=== PATIENT | male | born 1970 | race Caucasian/White ===

== ENCOUNTER → 2025-07-02 03:16 | Outpatient (BNV) | payer OTHER, SELFPAY | PROVIDERS: Visit Provider Radiology Diagnostic Radiology | DX: R07.9 Chest pain, unspecified (principal) | CPT/HCPCS: 71045 ==

== ENCOUNTER 2025-07-02 03:52 | Emergency (ER) | payer OTHER, SELFPAY ==
--- NOTE | 2025-07-02 | ECG_ITS ---
Test Reason : CHEST PAIN Blood Pressure : */* mmHG Vent. Rate : 59 BPM Atrial Rate : 59 BPM P-R Int : 156 ms QRS Dur : 72 ms QT Int : 402 ms P-R-T Axes : 33 -4 44 degrees QTcB Int : 397 ms Sinus bradycardia Otherwise normal ECG No previous ECGs available Referred By: Generic ED Physician Electronically Signed By: FLORENCIO ALVES
--- NOTE | ~2025-07-02 | XR_ITS ---
CLINICAL HISTORY: cp 1 view chest x-ray. Comparison: None provided Findings: The lungs appear clear. There is no consolidation, effusion, or pneumothorax. Cardiomediastinal silhouette is within normal limits. IMPRESSION: No acute cardiopulmonary abnormality. This document has been electronically signed by: Milton Cuellar MD on 07/02/2025 04:37:02
[2025-07-02 04:06] VITALS: BP 164/87; PULSE 66; RESP 18; TEMP 36.8; O2SAT 99; BMI 33.2
[2025-07-02 04:08] LABS: Hematocrit 43.4 % (42.0-52.0); Hemoglobin 15.5 g/dl (14.0-18.0); Imm Gran Abs Auto 0.03 X10*3/uL (0.00-0.03); Imm Gran Pct Auto 0.5 % (0.0-0.4); Lymphocytes Absolute Auto 1.2 X10*3/uL (1.2-4.9); MANUAL DIFF FLAG NO; Mean Corpuscular HGB Conc 35.7 g/dl (31.0-36.0); Mean Corpuscular Hemoglobin 28.9 pg (27.0-33.0); Mean Corpuscular Volume 81.0 fL (80.0-98.0); NRBC Abs Auto 0.000 X10*3/uL (0.0-0.012); NRBC Pct Auto 0.0 /100WBC (0.0-0.2); Platelet Count 252 X10*3/uL (160-400); Red Blood Count 5.36 X10*6/uL (4.60-5.80); White Blood Count 6.4 X10*3/uL (4.8-10.8)
[2025-07-02 04:26] LABS: Alanine Aminotransferase 27 U/L (0-40); Albumin Level 4.4 g/dL (3.5-5.0); Alkaline Phosphatase 67 U/L (39-117); Anion Gap 12 (12-20); Aspartate Amino Transferase 30 U/L (5-37); Blood Urea Nitrogen 20 mg/dL (9-16); Calcium 9.4 mg/dL (8.4-10.2); Carbon Dioxide 25 mmol/L (22-29); Chloride 108 mmol/L (96-108); Creatinine Clr Calc Pharmacy 90.3; Estimated Glomerular Filt Rate > 60; Potassium 4.0 mmol/L (3.3-5.1); Sodium 141 mmol/L (135-145); Total Protein 7.1 g/dL (6.5-8.0)
[2025-07-02 04:30] LABS: Troponin-I High Sensitivity 3.4 ng/L (<3.5-35.0)
[2025-07-02 04:32] VITALS: BP 152/87; PULSE 58; RESP 16; TEMP 37; O2SAT 99
--- OUTSIDE RECORDS SUMMARY | 2025-07-02 05:27 | XMS_ITS | Clinical Summary ---
Author Organization [facility] Address [address] [place] [id number] Phone Care Team Providers Care Page Makeup System Operator Name Role Phone Sachin Santos Primary Care Provider [phone] Allergies No known active allergies Medications fluticasone propionate (FLONASE) 50 mcg/actuation nasal spray 1 spray 2 (two) times a day. 08/20/2023 Active cetirizine (ZYRTEC) 10 MG tablet Take 1 tablet by mouth every morning. 08/20/2023 Active Social History Tobacco Use Types Packs/Day Years Used Date Smoking Tobacco: Never Assessed Education Answer Date Recorded Are you interested in more education? Not on froilan e 08/29/2023 Are you concerned about learning? Not on file 08/29/2023 No 08/29/2023 No 08/29/2023 Digital Access Answer Date Recorded No 08/29/2023 No 08/29/2023 Reliable internet access at home? Not on file 08/29/2023 Device with a working camera? Not on file Sex and Gender Information Value Date Recorded Sex Assigned at Not on file Legal Sex Male 7:15 PM EST Gender Identity Not on file Sexual Orientation Not on file Plan of Treatment Health Maintenance Due Date Last Done Comments Adult Td,Tdap Booster 1970 LIPID PANEL 1970 DEPRESSION SCREENING 1982 SMOKING Hx and SMOKELESS TOB ACCO SCREENING 1983 HEPATITIS C SCREENING 1988 HIV ONE-TIME SCREENING (18-6 5 YEARS) 1988 COLOGUARD 2015 COLONOSCOPY 2015 COLORECTAL CANCER SCREENING 2015 FIT TEST 2015 FOBT 2015 SIGMOIDOSCOPY 2015 VIRTUAL COLONOSCOPY 2015 PNEUMOCOCCAL VACCINES (50+ y ears) (1 of 1 - PCV) 2020 ZOSTER VACCINES (1 of 2) 2020 COVID-19 VACCINE (1 - 2023-2 5 season) 2024 INFLUENZA VACCINE (#1) 2025 HEPATITIS A VACCINES Aged Out No long er eligible based on patient's age to complete this topic HIB VACCINES Aged Out No longer eligi ble based on patient's age to complete this topic MENINGOCOCCAL VACCINES (ACWY) Aged Out No longer eligible based on patient's age to complete this topic MENINGOCOCCAL VACCINES (B) Aged Out N o longer eligible based on patient's age to complete this topic Medical Devices Not on file Insurance PPO PPO PPO PPO PPO PPO Care Teams Page Makeup System Operator Relationship Specialty Start Date End Date Sachin Santos PA [address] [place] [id number] [email or web address] PCP - General Physician Wiping Rag Washer 08/12/23 Additional Source Comments The information contained in this document represents components of the legal health record. It is not the complete legal health record.[facility]
--- OUTSIDE RECORDS SUMMARY | 2025-07-02 05:27 | XMS_ITS | Patient Health Record ---
Author Organization [facility] Address [address] [place] [address] Care Team Providers Care Cpr Instructor Name Role Phone Allan Manzanares Primary Care Provider BroJOSE RAUL Paula [phone] Medications Medication SIG (Take, Route, Fr equency, Duration) Notes Start Date End Date Status Ibuprofen 800 MG 1 tablet Orally Thre e times a day; Duration: 5 day(s) 07/15/2012 Active Problems Problem Type SNOMED Code ICD Code Onset Dates Problem Status W/U Status Risk Notes Problem Contraception care education (392063839) Other general counseling and advice for contraceptive management (V25.09) Active confirmed Plan Of Treatment No Information Insurance Providers Payer Name Payer Address Payer Phone Subscriber Number Group Number Insured Name Patient Relationship to Insured Coverage Start Date Coverage End Date BLUE [facility] [address] [place] [address] [phone] [id number] Juice Grey Self - patient is the insured Medical (General) History Medical History History ICD Code Inguinal hernia at age 10 Surgical History Surgery Date(Month/Year) Inguinal hernia repair 1979
--- OUTSIDE RECORDS SUMMARY | 2025-07-02 05:28 | XMS_ITS | Patient Health Record ---
Author Organization [facility] Address [address] [place] [address] Care Team Providers Care Cafeteria Manager Name Role Phone Allan Manzanares Iii, MD Primary Care Provider Melissajonh Tinsley, Sachin Unavailable [phone] Reason For Referral No Information Medications Medication SIG (Take, Route, Fr equency, Duration) Notes Start Date End Date Status Ibuprofen 800 MG Tablet 1 tablet Orally Three times a day; Duration: 5 day(s) 07/15/2012 Active Social History Social History Additional Details Category Social Info Options Details Migrated Social History Drugs/Alcohol: (Alcohol Screen): Points: 3, Interpretation: Negative Tobacco Use: (Tobacco Use/Smoking): Are you a:: former smoker , How long has it been since you last smoked?: >10 years Problems Problem Type SNOMED Code ICD Code Onset Dates Problem Status W/U Status Risk Notes Problem Other general counseling and advice for contraceptive management (Z30.09) Active confirmed Plan Of Treatment No Information Insurance Providers Payer Name Payer Address Payer Phone Subscriber Number Group Number Insured Name Patient Relationship to Insured Coverage Start Date Coverage End Date Blue [facility] [address] [id number] Juice Grey Self - patient is the insured Medical (General) History Medical History History ICD Code Inguinal hernia at age 10 Surgical History Surgery Date(Month/Year) Inguinal hernia repair 1979
--- NOTE | 2025-07-02 06:12 | ED.CHESTPAIN ---
HPI - Chest Pain General Chief Complaint: Chest Pain Stated Complaint: CP Time Seen by Provider: 07/02/25 06:12 History of Present Illness ED Provider: Razia SANFORD narrative: The patient is a 55-year-old male who comes to the emergency room for evaluation of symptoms of chest pressure that has been bothering him for about 3 or 4 days fairly continuously. He has also noticed that his blood pressures has been running higher this week. Tonight his blood pressure seemed to be even higher than they has been and he decided to come to the emergency room for evaluation. There has been a question as to whether the patient has hypertension requiring treatment. He has not yet been on any treatment.. He does triathlons. He says that his father has a history of coronary stents. He thinks that his father 1st started having heart troubles at around the age of 70. The patient has never been a smoker. Related Data Allergies Allergy/AdvReac Type Severity Reaction Status Date / Time No Known Allergies Allergy Verified 07/02/25 04:10 Review of Systems Review of Systems: Yes all other systems are reviewed and are negative [facility] Social History Social History Smoked in Last 30 Days: No Use of substances other than those prescribed or required for medical reasons: No Advance Directives: No Advance Directives Information Provided: Yes Physical Exam Vital Signs: Vital Signs: Last Vital Signs Temp 97.9 F 07/02/25 06:31 Pulse 64 07/02/25 06:31 Resp 12 07/02/25 06:31 BP 151/99 H 07/02/25 06:31 Pulse Ox 99 07/02/25 06:31 O2 Del Method Room Air 07/02/25 06:31 BMI result Body Mass Index 33.2 Const: Other: The patient is awake, alert, pleasant, cooperative. He does not appear in any distress. Orientation/consciousness: patient oriented x3 HEENT: Other: The face is symmetrical. ?Mucous membranes moist. Eyes: Other: Pupils are round equal, conjunctivae are clear, extraocular movements intact Neck: Neck: Yes normal visual inspection, Yes full ROM and Yes no JVD Resp: Effort & Inspection: normal respiratory effort Auscultation: clear to auscultation bilaterally Cardio: Rate: regular rate Rhythm: regular rhythm Heart sounds: S1 normal heart sound present and S2 normal heart sound present GI: Other: Abdomen is soft and nontender Skin: Other: The skin is dry and unremarkable General skin exam: no rashes or lesions noted Neuro: General: patient oriented x3, gait normal, tone normal, moves all extremities, no focal motor deficits and CN's II-XI intact bilaterally Extrem: Other: There is no calf swelling or tenderness. No asymmetry. No peripheral edema. Medical Decision Making Medical Decision Making [facility] Narrative: The patient is a 55-year-old male who presents with 3 or 4 days of continuous pressure-like chest discomfort which is nonpleuritic. Tonight he also had some higher blood pressure readings at home and the higher blood pressure readings prompted him to come to the emergency room for evaluation. He does not look acutely ill. He looks comfortable and well. His EKG is normal. He has a troponin of 3.4 after several days of continuous discomfort. My suspicion for an acute coronary syndrome would therefore be very low. I do not think he requires an additional troponin test. Clinically he does not seem to have a pulmonary embolism or other acutely dangerous process. I suspect that he probably requires treatment for his hypertension but I do not have a significant suspicion for a more concerning intrathoracic process. I think he may be discharged to follow up with his primary care provider. He will likely need to be on antihypertensive medications. I explained to the patient that if he feels significantly worse at any time he should return to the emergency room for additional evaluation. Lab Data 07/02/25 04:02 07/02/25 04:02 Labs: Lab Results 07/02/25 Range/Units 04:02 WBC 6.4 (4.8-10.8) X10*3/uL RBC 5.36 (4.60-5.80) X10*6/uL Hgb 15.5 (14.0-18.0) g/dl Hct 43.4 (42.0-52.0) % MCV 81.0 (80.0-98.0) fL MCH 28.9 (27.0-33.0) pg MCHC 35.7 (31.0-36.0) g/dl RDW 12.5 (11.0-16.0) % Plt Count 252 (160-400) X10*3/uL MPV 8.6 L (9.4-12.4) fL Immature Gran % (Auto) 0.5 H (0.0-0.4) % Neut % (Auto) 63.5 (45-73) % Lymph % (Auto) 18.9 L (20-40) % [place] % (Auto) 11.2 H (2-11) % Eos % (Auto) 5.1 H (0-4) % Baso % (Auto) 0.8 (0-2) % Lymph # (Auto) 1.2 (1.2-4.9) X10*3/uL [place] # (Auto) 0.7 (0.1-1.2) X10*3/uL Eos # (Auto) 0.3 (0.0-0.4) X10*3/uL Baso # (Auto) 0.1 (0.0-0.2) X10*3/uL Abs Immat Gran (auto) 0.03 (0.00-0.03) X10*3/uL Absolute Neuts (auto) 4.1 (2.0-8.3) x10*3/uL Absolute Nucleated RBC 0.000 (0.0-0.012) X10*3/uL Nucleated RBC % (auto) 0.0 (0.0-0.2) /100WBC Sodium 141 (135-145) mmol/L Potassium 4.0 (3.3-5.1) mmol/L Chloride 108 (96-108) mmol/L Carbon Dioxide 25 (22-29) mmol/L Anion Gap 12 (12-20) BUN 20 H (9-16) mg/dL Creatinine 1.02 (0.5-1.4) mg/dL Estim Creat Clear Calc 90.3 Estimated GFR > 60 Random Glucose 96 (60-115) mg/dL Calcium 9.4 (8.4-10.2) mg/dL Total Bilirubin 0.4 (0.0-1.0) mg/dL AST 30 (5-37) U/L ALT 27 (0-40) U/L Alkaline Phosphatase 67 (39-117) U/L Troponin I High Sens 3.4 (<3.5-35.0) ng/L Total Protein 7.1 (6.5-8.0) g/dL Albumin 4.4 (3.5-5.0) g/dL Discharge Plan Discharge Clinical Impression: Chest pressure, High blood pressure Patient Disposition: Home, Self-Care Additional Instructions: Your testing in the emergency room today seems very reassuring from the point of view of whether your chest pressure represents a heart attack. I think it is very unlikely but your symptoms represent a heart attack since you have had the same discomfort for several days and your testing is so reassuring. Your blood pressures are somewhat high here. I think you should probably be on antihypertensive medication. Please contact your regular doctor's office today to discuss your blood pressure and different blood pressure medication options. If at any point you are significantly worse please return to the emergency room. Referrals: Jessica Toledo MD [Physician, Family Practice] Print Language: Albanian
[2025-07-02 06:31] VITALS: BP 151/99; PULSE 64; RESP 12; TEMP 36.6; O2SAT 99
[2025-07-02 07:17] VITALS: BP 151/99; PULSE 64; RESP 12; TEMP 36.6; O2SAT 99
== END 2025-07-02 07:18 | disposition home or self-care (01) ==
PROVIDERS: Emergency Provider Emergency Medicine
DX: R07.9 Chest pain, unspecified (principal); I10 Essential (primary) hypertension; R00.1 Bradycardia, unspecified
CPT/HCPCS: 36415; 71045; 80053; 84484; 85025; 93005; 99283; 99285

== ENCOUNTER → 2025-07-02 03:57 | Outpatient (BNV) | payer OTHER, SELFPAY | PROVIDERS: Emergency Provider Emergency Medicine; Visit Provider Internal Medicine | DX: R00.1 Bradycardia, unspecified (principal) | CPT/HCPCS: 93010 ==